=== PATIENT | male | born 1980 | race African-American/Black ===

== ENCOUNTER 2020-08-18 11:35 | Emergency (ER) | payer SELFPAY ==
[2020-08-18] MEDS ORDERED: HYDROCODONE/APAP 10/325 TAB ONE (12:10)
--- NOTE | 2020-08-18 12:49 | RAD REPORT ---
EXAM DESCRIPTION: RAD - Femur Left - 08/18/2020 12:33 pm CLINICAL HISTORY: PAIN COMPARISON: None. FINDINGS: No fracture is identified. There are multiple crossing artifacts in the left femoral neck and intertrochanteric region from overlying soft tissues There is no dislocation or periosteal reacti on noted. No acute or suspicious bony finding. No air or foreign body in the soft tissues. IMPRESSION: Negative left femur examination.
--- NOTE | 2020-08-18 13:30 | EDPHYS ---
Physician Documentation [facility] Name: Ashvin Okeefe Age: 40 yrs Sex: Male : 1980 Arrival Date: 08/18/2020 Time: 11:37 Bed 16 Private MD: ED Physician Scott Porter HPI: 08/18 11:52 This 40 yrs old Black Male presents to ER via Wheelchair with complaints of Fall Injury jmm - hip/thigh pain. 11:52 Details of fall: The patient fell from an upright position. Onset: The symptoms/episode jmm began/occurred acutely. Associated injuries: The patient sustained no obvious injury. The patient has not experienced similar symptoms in the past. This is a 40 year old male with a history of htn that presents to the ED with complaints of left thigh pain after slipping in his garage last night. Denies hitting his head. Historical: - Allergies: 11:49 No Known Allergies; iw - Home Meds: 11:49 triamterene oral oral once daily [Active]; iw - PMHx: 11:49 Hypertension; iw - PSHx: 11:49 None; iw - Immunization history:: Adult Immunizations up to date. - Social history:: Smoking status: Patient denies any tobacco usage or history of. ROS: 11:52 Constitutional: Negative for fever, chills, and weight loss, Cardiovascular: Negative jmm for chest pain, palpitations, and edema, Respiratory: Negative for shortness of breath, cough, wheezing, and pleuritic chest pain, Abdomen/GI: Negative for abdominal pain, nausea, vomiting, diarrhea, and constipation. 11:52 MS/extremity: Positive for pain. 11:52 All other systems are negative. Exam: 11:52 Constitutional: This is a well developed, well nourished patient who is awake, alert, jmm and in no acute distress. Head/Face: atraumatic. Eyes: EOMI, no conjunctival erythema appreciated ENT: Moist Mucus Membranes Neck: Trachea midline, Supple Chest/axilla: Normal chest wall appearance and motion. Cardiovascular: Regular rate and rhythm. No edema appreciated Respiratory: Normal respirations, no respiratory distress appreciated Abdomen/GI: Non distended, soft Back: Normal ROM Skin: General appearance color normal 11:52 Musculoskeletal/extremity: left lateral thigh tenderness, no deformity appreciated. 11:52 Skin: Appearance: Color: normal in color. 11:52 Neuro: Orientation: is normal, Mentation: is normal, Memory: is normal. 11:52 Psych: Behavior/mood is pleasant, cooperative. Vital Signs: 11:50 BP 172 / 83; Pulse 105; Resp 18 S; Temp 97.6; Pulse Ox 97% on R/A; Weight 172.37 kg; iw Height 6 ft. 1 in. (185.42 cm); Pain 6/10; 12:50 BP 145 / 100; Pulse 93; Resp 16; Pulse Ox 95% ; zb 13:50 BP 126 / 72; Pulse 95; Resp 16; Pulse Ox 98% on R/A; zb 11:50 Body Mass Index 50.14 (172.37 kg, 185.42 cm) iw MDM: 11:46 Patient medically screened. [facility] 13:28 Data reviewed: vital signs, nurses notes. Counseling: I had a detailed discussion with domenic the patient and/or guardian regarding: the historical points, exam findings, and any diagnostic results supporting the discharge/admit diagnosis, radiology results, the need for outpatient follow up, to return to the emergency department if symptoms worsen or persist or if there are any questions or concerns that arise at home. ED course: Imaging studies are negative. Patient most likely has a deep muscle contusion. I do not suspect DVT. Patient is advised to take anti inflammatories and otherwise given strict return precautions. Patient understood and agrees with the plan of care. . 02 11:52 Order name: Femur Left XRAY; Complete Time: 12:54 [facility] Administered Medications: 11:56 Drug: Huson 10 mg-325 mg 1 tabs Route: PO; iw 13:51 Follow up: Response: No adverse reaction; Pain is decreased; RASS: Alert and Calm (0) zb 14:15 Drug: Ketorolac 30 mg Route: IM; Site: right deltoid; zb Disposition: 17:06 Co-signature as Attending Physician, Scott Porter MD. rn Disposition: 08/18/20 13:30 Discharged to Home. Impression: Contusion of left thigh. - Condition is Stable. - Discharge Instructions: Contusion. - Prescriptions for Ibuprofen 800 mg Oral Tablet - take 1 tablet by ORAL route every 8 hours As needed take with food; 30 tablet. orphenadrine citrate 100 mg Oral Tablet Sustained Release - take 1 tablet by ORAL route 2 times per day As needed; 20 tablet. - Medication Reconciliation Form, Thank You Letter, Antibiotic Education, Prescription Opioid Use, Work release form form. - Follow up: Private Physician; When: 2 - 3 days; Reason: Recheck today's complaints, Continuance of care, Re-evaluation by your physician. Signatures: Dispatcher [employer] EDMS Kenneth Pathak PA PA jmm Williams, Irene, RN RN iw Nieto, Roman, MD MD rn Brown, Zipporah, RN RN zneva Corrections: (The following items were deleted from the chart) 15:32 13:30 08/18/2020 13:30 Discharged to Home. Impression: Contusion of left thigh. zb Condition is Stable. Forms are Medication Reconciliation Form, Thank You Letter, Antibiotic Education, Prescription Opioid Use. Follow up: Private Physician; When: 2 - 3 days; Reason: Recheck today's complaints, Continuance of care, Re-evaluation by your physician. domenic
--- NOTE | 2020-08-18 13:30 | ER ---
Nurse's Notes [facility] Name: Ashvin Okeefe Age: 40 yrs Sex: Male : 1980 Arrival Date: 08/18/2020 Time: 11:37 Bed 16 Private MD: Diagnosis: Contusion of left thigh Presentation: 08/18 11:47 Chief complaint: Patient states: slipped and fell in garage last night, extended his iw left leg forward and now has pain in left buttock and down to thigh. 11:47 Acuity: YASHIRA 4 iw 11:47 Method Of Arrival: Wheelchair iw 11:48 Coronavirus screen: At this time, the client does not indicate any symptoms associated iw with coronavirus-19. Ebola Screen: Patient negative for fever greater than or equal to 101.5 degrees Fahrenheit, and additional compatible Ebola Virus Disease symptoms Patient denies exposure to infectious person. Patient denies travel to an Ebola-affected area in the 21 days before illness onset. No symptoms or risks identified at this time. Initial Sepsis Screen: Does the patient meet any 2 criteria? No. Patient's initial sepsis screen is negative. Does the patient have a suspected source of infection? No. Patient's initial sepsis screen is negative. Risk Assessment: Do you want to hurt yourself or someone else? Patient reports no desire to harm self or others. Onset of symptoms was August 17, 2020. Historical: - Allergies: 11:49 No Known Allergies; iw - Home Meds: 11:49 triamterene oral oral once daily [Active]; iw - PMHx: 11:49 Hypertension; iw - PSHx: 11:49 None; iw - Immunization history:: Adult Immunizations up to date. - Social history:: Smoking status: Patient denies any tobacco usage or history of. Screenin:05 Abuse screen: Denies threats or abuse. Denies injuries from another. Nutritional zb screening: No deficits noted. Tuberculosis screening: No symptoms or risk factors identified. Fall Risk Fall in past 12 months (25 points). No secondary diagnosis (0 pts). No IV (0 pts). Ambulatory Aid- None/Bed Rest/Nurse Assist (0 pts). Gait- Impaired (20 pts.). Mental Status- Oriented to own ability (0 pts). Total Mckeon Fall Scale indicates Low Risk Score (25-44 pts). Fall prevention measures have been instituted. Side Rails Up X 2 Placed close to Nursing Station Frequent Obs/Assesments occuring As available Patient and Family Educated on Fall Prevention Program and strategies. Assessment: 12:03 General: Appears in no apparent distress. uncomfortable, Behavior is calm, cooperative, zb appropriate for age. Pain: Complains of pain in left hamstring and posterior aspect of left knee Pain does not radiate. Pain currently is 7 out of 10 on a pain scale. Quality of pain is described as aching, sharp, Pain began 1 day ago. Is continuous, Aggravated by increased activity, repositioning, weight bearing, Noted to be grimacing. Neuro: Level of Consciousness is awake, alert, obeys commands, Oriented to person, place, time, situation. Cardiovascular: Capillary refill < 3 seconds in bilateral fingers Patient's skin is warm and dry. Respiratory: Airway is patent Respiratory effort is even, unlabored, Respiratory pattern is regular, symmetrical. GI: Abdomen is round non-distended, obese. : No deficits noted. EENT: No deficits noted. Derm: Skin is intact, is healthy with good turgor, Skin is dry, Skin is normal, Skin temperature is warm. Musculoskeletal: Capillary refill < 3 seconds, in bilateral Range of motion: limited in left hip. 13:00 Reassessment: Patient appears in no apparent distress at this time. Patient and/or zb family updated on plan of care and expected duration. Pain level reassessed. Patient is alert, oriented x 3, equal unlabored respirations, skin warm/dry/pink. patient rates pain 6/10. currently sitting in wheelchair due to discomfort with motion. 14:03 Reassessment: ECP at bedside, discussing POC w/ patient. zb 14:15 Reassessment: Pt given walker. zb 14:22 Reassessment: Patient given IM medication d/c pending 15 min completion. zb 15:30 Reassessment: pt discharged given walker instructed on instruction. ambulated. zb understood d/c instructions. Vital Signs: 11:50 BP 172 / 83; Pulse 105; Resp 18 S; Temp 97.6; Pulse Ox 97% on R/A; Weight 172.37 kg; iw Height 6 ft. 1 in. (185.42 cm); Pain 6/10; 12:50 BP 145 / 100; Pulse 93; Resp 16; Pulse Ox 95% ; zb 13:50 BP 126 / 72; Pulse 95; Resp 16; Pulse Ox 98% on R/A; zb 11:50 Body Mass Index 50.14 (172.37 kg, 185.42 cm) ED Course: 11:37 Patient arrived in ED. as 11:38 Kenneth Pathak PA is PHCP. m 11:38 Scott Porter MD is Attending Physician. jmm 11:48 Triage completed. iw 11:49 Arm band placed on. iw 11:59 Day Garsia, OLGA is Primary Nurse. zb 12:06 Patient has correct armband on for positive identification. Pulse ox on. NIBP on. Door zb closed. Noise minimized. 12:34 Femur Left XRAY In Process Unspecified. EDMS 15:31 No provider procedures requiring assistance completed. Patient did not have IV access zb during this emergency room visit. Administered Medications: 11:56 Drug: Coleraine 10 mg-325 mg 1 tabs Route: PO; iw 13:51 Follow up: Response: No adverse reaction; Pain is decreased; RASS: Alert and Calm (0) zb 14:15 Drug: Ketorolac 30 mg Route: IM; Site: right deltoid; zb Outcome: 13:30 Discharge ordered by . m 15:31 Discharged to home ambulatory, with walker zb 15:31 Condition: stable 15:31 Discharge instructions given to patient, Instructed on discharge instructions, follow up and referral plans. medication usage, Demonstrated understanding of instructions, follow-up care, medications, Prescriptions given X 2. 15:32 Patient left the ED. zb Signatures: Dispatcher [employer] EDMS Kenneth Pathak PA PA jmm Martinez, Amelia as Williams, Irene, RN RN iw Day Garsia RN RN zb Corrections: (The following items were deleted from the chart) 11:50 11:50 BP 172 / 83; Pulse 105bpm; Resp 18bpm; Spontaneous; Pulse Ox 97% RA; 172.37 kg; iw Height 6 ft. 1 in.; BMI: 50.1; Pain 6/10; iw 13:52 13:51 Response: No adverse reaction; Pain is decreased zb zb
[2020-08-18] MEDS ORDERED: KETOROLAC 30 MG/ML INJ ONE (14:28)
[2020-08-18 15:36] VITALS: TEMP 97.6
[2020-08-18 15:38] VITALS: BP 126/72; O2SAT 98
== END 2020-08-18 15:32 | disposition home or self-care (01) ==
LOC: ER 11:35
DX: S70.12XA Contusion of left thigh, initial encounter (principal); W01.0XXA Fall on same level from slipping, tripping and stumbling without subsequent striking against object, initial encounter; Y93.89 Activity, other specified; Y92.008 Other place in unspecified non-institutional (private) residence as the place of occurrence of the external cause; I10 Essential (primary) hypertension
CPT/HCPCS: 96372; 99284

== ENCOUNTER 2021-11-21 10:03 | Emergency (ER) | payer OTHER ==
--- NOTE | 2021-11-21 11:48 | RAD REPORT ---
EXAM DESCRIPTION: RAD - Knee Right 3 View - 11/21/2021 11:35 am CLINICAL HISTORY: knee pain, injury COMPARISON: No comparisonsNo comparisons FINDINGS/IMPRESSION: No acute fracture. No malalignment. Mild lateral compartment narrowing.
--- NOTE | 2021-11-21 12:50 | ER ---
Nurse's Notes [facility] Name: Ashvin Okeefe Age: 41 yrs Sex: Male : 1980 Arrival Date: 11/21/2021 Time: 10:06 Bed 6 Private MD: Diagnosis: Other internal derangements of right knee Presentation: 11/21 10:36 Acuity: YASHIRA 4 iw 10:47 Chief complaint: Patient states: slipped last night and now has right knee pain. iw Coronavirus screen: At this time, the client does not indicate any symptoms associated with coronavirus-19. Ebola Screen: Patient negative for fever greater than or equal to 101.5 degrees Fahrenheit, and additional compatible Ebola Virus Disease symptoms Patient denies exposure to infectious person. Patient denies travel to an Ebola-affected area in the 21 days before illness onset. No symptoms or risks identified at this time. Initial Sepsis Screen: Does the patient meet any 2 criteria? No. Patient's initial sepsis screen is negative. Does the patient have a suspected source of infection? No. Patient's initial sepsis screen is negative. Risk Assessment: Do you want to hurt yourself or someone else? Patient reports no desire to harm self or others. Onset of symptoms was November 21, 2021. 10:47 Method Of Arrival: Ambulatory Vital Signs: 12:02 BP 130 / 77; Pulse 93; Resp 16; Temp 98.0; Pulse Ox 96% on R/A; iw ED Course: 10:06 Patient arrived in ED. mr 10:12 Kenneth Pathak PA is PHCP. [facility] 10:12 Jesus Bridges DO is Attending Physician. m 10:36 Triage completed. iw 11:37 Knee Right 3 View XRAY In Process Unspecified. EDMS 12:49 Sammy Palacio MD is Referral Physician. jmm 12:52 Bed in low position. Call light in reach. Side rails up X 1. Pulse ox on. NIBP on. 5 12:53 Peña wrap to right knee. 5 Administered Medications: 13:16 Drug: Ketorolac 30 mg Route: IM; Site: left deltoid; [facility] Outcome: 12:49 Discharge ordered by MD. [facility] 13:30 Patient left the ED. [facility] Signatures: Dispatcher [employer] Kenneth Agee PA PA jmm Rivera, Kate mr Zhane Okeefe, RN RN Quin [facility] Gwen Hare RN RN [id number]
--- NOTE | 2021-11-21 12:50 | EDPHYS ---
Physician Documentation [facility] Name: Ashvin Okeefe Age: 41 yrs Sex: Male : 1980 Arrival Date: 11/21/2021 Time: 10:06 Bed 6 Private MD: ED Physician Jesus Bridges HPI: 11/21 12:46 This 41 yrs old Black Male presents to ER via Ambulatory with complaints of Knee Pain. jmm 12:46 The patient presents with an injury, pain. Onset: The symptoms/episode began/occurred jmm acutely. Modifying factors: The symptoms are alleviated by nothing. the symptoms are aggravated by nothing. This is a 41-year-old male presents emerged department after a fall which occurred yesterday. Patient states he has pain mainly to the right medial knee. Denies other known injury.. ROS: 12:46 Constitutional: Negative for fever, chills, and weight loss, Cardiovascular: Negative jmm for chest pain, palpitations, and edema, Respiratory: Negative for shortness of breath, cough, wheezing, and pleuritic chest pain. 12:46 MS/extremity: Positive for injury or acute deformity. 12:46 All other systems are negative. Exam: 12:46 Constitutional: This is a well developed, well nourished patient who is awake, alert, jmm and in no acute distress. Head/Face: atraumatic. Eyes: EOMI, no conjunctival erythema appreciated ENT: Moist Mucus Membranes Neck: Trachea midline, Supple Chest/axilla: Normal chest wall appearance and motion. Cardiovascular: Regular rate and rhythm. No edema appreciated Respiratory: Normal respirations, no respiratory distress appreciated Abdomen/GI: Non distended, soft Back: Normal ROM Skin: General appearance color normal 12:46 Musculoskeletal/extremity: Full range of motion appreciated the right knee, compartments are soft, pain mainly localized to the right medial knee, full dorsalis pedis pulse, neurovascular intact.. 12:46 Skin: Appearance: Color: normal in color. 12:46 Neuro: Orientation: is normal, Mentation: is normal, Memory: is normal. 12:46 Psych: Behavior/mood is pleasant, cooperative. Vital Signs: 12:02 BP 130 / 77; Pulse 93; Resp 16; Temp 98.0; Pulse Ox 96% on R/A; iw MDM: 10:35 Patient medically screened. jmm 12:48 Data reviewed: vital signs, nurses notes. Counseling: I had a detailed discussion with [facility] the patient and/or guardian regarding: the historical points, exam findings, and any diagnostic results supporting the discharge/admit diagnosis, radiology results, the need for outpatient follow up, to return to the emergency department if symptoms worsen or persist or if there are any questions or concerns that arise at home. 11/21 10:34 Order name: Knee Right 3 View XRAY; Complete Time: 11:59 [facility] 11/21 12:52 Order name: Peña wrap-joint; Complete Time: 12:57 [facility] Administered Medications: 13:16 Drug: Ketorolac 30 mg Route: IM; Site: left deltoid; [facility] Disposition: 22:09 Co-signature as Attending Physician, Jesus Bridges DO I was immediately available on-site ms3 in the Emergency Department for consultation in the care of the patient.. Disposition Summary: 11/21/21 12:49 Discharge Ordered Location: Home [facility] Condition: Stable [facility] Diagnosis - Other internal derangements of right knee [facility] Followup: [facility] - With: Sammy Palacio MD - When: 2 - 3 days - Reason: Recheck today's complaints, Continuance of care, Re-evaluation by your physician Discharge Instructions: - Discharge Summary Sheet [facility] - Acute Knee Pain, Adult [facility] Forms: - Medication Reconciliation Form [facility] - Thank You Letter [facility] - Antibiotic Education [facility] - Prescription Opioid Use [facility] - Work release form 6 Prescriptions: - Diclofenac Sodium 75 mg Oral Tablet Sustained Release - take 1 tablet by ORAL route 2 times per day; 30 tablet; Refills: 0, Product [facility] Selection Permitted - orphenadrine citrate 100 mg Oral Tablet Sustained Release - take 1 tablet by ORAL route 2 times per day As needed; 20 tablet; Refills: 0, [facility] Product Selection Permitted Signatures: Dispatcher [employer] Kenneth Agee PA PA jmm Sims, Marcus, DO DO ms3 Gwen Hare RN RN [id number]
[2021-11-21] MEDS ORDERED: KETOROLAC 30 MG/ML INJ ONE (13:16)
[2021-11-21 13:49] VITALS: BP 130/77; TEMP 98; O2SAT 96
== END 2021-11-21 13:30 | disposition home or self-care (01) ==
LOC: ER 10:03
DX: M23.8X1 Other internal derangements of right knee (principal)
CPT/HCPCS: 96372; 99284

== ENCOUNTER 2022-06-07 11:30 | Emergency (ER) | payer OTHER ==
[2022-06-07 12:24] LABS: Absolute Lymphocytes (CBC) 2.5 K/uL (0.7-4.9); Hematocrit 39.6 % (39.6-49.0); Lymphocytes % 31.7 % (15.3-44.8); MCV 86.1 fL (80-100)
[2022-06-07 12:44] LABS: Potassium 3.6 mmol/L (3.5-5.1); Troponin High Sensitivity 8.5 pg/mL (<58.9)
--- NOTE | 2022-06-07 13:34 | RAD REPORT ---
EXAM DESCRIPTION: RAD - Chest Single View - 06/07/2022 1:14 pm CLINICAL HISTORY: papitations COMPARISON: No comparisons FINDINGS: Lines: None. Lungs: No evidence of edema or pneumonia. Pleural: No significant pleural effusions or pneumothorax. Cardiac: The heart size is within normal limits. Mediastinum: Within normal limits. Bones: No acute fractures. Other: None IMPRESSION: No acute cardiopulmonary disease.
--- NOTE | 2022-06-07 15:53 | RAD REPORT ---
EXAM DESCRIPTION: US - Extrem Venous W Compress Theodore - 06/07/2022 3:46 pm CLINICAL HISTORY: palpitations, elevated d dimer COMPARISON: No comparisonsNo comparisons TECHNIQUE: Real-time sonographic evaluation of the lower extremity deep venous systems was performed using color Doppler, grayscale, and compression. FINDINGS: Bilateral lower extremities. Normal compressibility, flow augmentation, phasic flow and spontaneous flow is identified in both the left and right lower extremity deep venous systems. No intraluminal filling defects seen. IMPRESSION: No DVT in either lower extremity.
--- NOTE | 2022-06-07 16:51 | ER ---
Nurse's Notes [facility] Name: Ashvin Okeefe Age: 42 yrs Sex: Male : 1980 Arrival Date: 06/07/2022 Time: 11:31 Bed 25 Private MD: Diagnosis: Palpitations;Morbid (severe) obesity due to excess calories;Elevated D Dimer Presentation: 06/07 11:54 Chief complaint: Patient states: "I feel my heart racing since Thursday." Denies pain, kb3 N/V. Coronavirus screen: Vaccine status: Patient reports receiving the 2nd dose of the covid vaccine. Client denies travel out of the [place] in the last 14 days. Ebola Screen: Patient negative for fever greater than or equal to 101.5 degrees Fahrenheit, and additional compatible Ebola Virus Disease symptoms Patient denies exposure to infectious person. Patient denies travel to an Ebola-affected area in the 21 days before illness onset. Initial Sepsis Screen: Does the patient meet any 2 criteria? No. Patient's initial sepsis screen is negative. Does the patient have a suspected source of infection? No. Patient's initial sepsis screen is negative. Risk Assessment: Do you want to hurt yourself or someone else? Patient reports no desire to harm self or others. Onset of symptoms was June 02, 2022. 11:54 Method Of Arrival: Ambulatory kb3 11:54 Acuity: YASHIRA 3 kb3 Triage Assessment: 11:57 General: Appears in no apparent distress. Behavior is calm, cooperative. Pain: Denies kb3 pain. Cardiovascular: Reports palpitations. Historical: - Allergies: 11:57 No Known Allergies; kb3 - PMHx: 11:57 Hypertension; NIDDM; kb3 - PSHx: 11:57 None; kb3 - Immunization history:: Adult Immunizations up to date, Client reports receiving the 2nd dose of the Covid vaccine, Last tetanus immunization: up to date. - Social history:: Smoking status: Patient denies any tobacco usage or history of. Screenin:56 Abuse screen: Denies threats or abuse. Denies injuries from another. Nutritional tp1 screening: No deficits noted. Tuberculosis screening: No symptoms or risk factors identified. Fall Risk None identified. Assessment: 12:05 General: Appears in no apparent distress. comfortable, Behavior is calm, cooperative. tp1 Pain: Denies pain. Neuro: Level of Consciousness is awake, alert, obeys commands, Oriented to person, place, time, situation, Denies blurred vision dizziness, headache. Cardiovascular: Reports increased heart rate Denies chest pain, palpitations, shortness of breath, Patient's skin is warm and dry. Respiratory: Airway is patent Respiratory effort is even, unlabored. GI: Abdomen is obese, Patient currently denies diarrhea, nausea, vomiting. : No signs and/or symptoms were reported regarding the genitourinary system. EENT: No signs and/or symptoms were reported regarding the EENT system. Derm: Skin is pink, warm \\T\\ dry. Musculoskeletal: Circulation, motion, and sensation intact. 12:56 Reassessment: Patient appears in no apparent distress at this time. No changes from tp1 previously documented assessment. Patient and/or family updated on plan of care and expected duration. Pain level reassessed. Patient is alert, oriented x 3, equal unlabored respirations, skin warm/dry/pink. Patient denies pain at this time. 13:57 Reassessment: Patient appears in no apparent distress at this time. No changes from tp1 previously documented assessment. Patient is alert, oriented x 3, equal unlabored respirations, skin warm/dry/pink. watching TV with at bedside Patient denies pain at this time. 14:53 Reassessment: Patient appears in no apparent distress at this time. No changes from tp1 previously documented assessment. Patient denies pain at this time. 16:09 Reassessment: Patient appears in no apparent distress at this time. No changes from tp1 previously documented assessment. Patient is alert, oriented x 3, equal unlabored respirations, skin warm/dry/pink. watching TV comfortably Patient denies pain at this time. Vital Signs: 11:54 BP 147 / 91; Pulse 103; Resp 20; Temp 98.4; Pulse Ox 98% ; Weight 192.32 kg; Height 6 kb3 ft. 1 in. (185.42 cm); Pain 0/10; 12:57 BP 156 / 96; Pulse 100; Resp 19; Pulse Ox 99% on R/A; tp1 14:01 Weight 189.6 kg (M); tp1 14:01 BP 148 / 84; Pulse 90; Resp 17; Pulse Ox 100% on R/A; tp1 14:53 BP 134 / 80; Pulse 90; Resp 22; Pulse Ox 100% on R/A; tp1 16:09 BP 125 / 77; Pulse 81; Resp 17; Pulse Ox 100% on R/A; tp1 14:01 Body Mass Index 55.15 (189.60 kg, 185.42 cm) tp1 ED Course: 11:31 Patient arrived in ED. as 11:47 Jesus Bridges DO is Attending Physician. ms3 11:57 Triage completed. kb3 11:57 Arm band placed on left wrist. kb3 12:00 Betzy Lui, RN is Primary Nurse. tp1 12:05 Patient has correct armband on for positive identification. Bed in low position. Call tp1 light in reach. Adult w/ patient. 12:05 Client placed on continuous cardiac and pulse oximetry monitoring. NIBP monitoring tp1 applied. 12:05 EKG done, by collision technician. reviewed by Jesus Bridges DO. 12:14 No provider procedures requiring assistance completed. Inserted saline lock: 20 gauge tp1 in left antecubital area, using aseptic technique. Blood collected. Patient maintains SpO2 saturation greater than 95% on room air. 13:16 XRAY Chest (1 view) In Process Unspecified. EDMS 15:48 Extrem Venous W Compression Theodore US In Process Unspecified. EDMS 16:49 Ariel Spaulding DO is Referral Physician. ms3 17:02 IV discontinued, intact, bleeding controlled, No redness/swelling at site. Pressure tp1 dressing applied. Administered Medications: No medications were administered Medication: 12:57 VIS not applicable for this client. tp1 Outcome: 16:50 Discharge ordered by . ms3 17:02 Discharged to home ambulatory. tp1 17:02 Condition: good 17:02 Discharge instructions given to patient, Instructed on discharge instructions, follow up and referral plans. Demonstrated understanding of instructions, follow-up care. 17:03 Patient left the ED. tp1 Signatures: Dispatcher [employer] EDMS Melissa Morris Marcus, DO DO ms3 Betzy Lui, RN RN tp1 Arianna Morris Kelly RN RN kb3
--- NOTE | 2022-06-07 16:51 | EDPHYS ---
Physician Documentation [facility] Name: Ashvin Okeefe Age: 42 yrs Sex: Male : 1980 Arrival Date: 06/07/2022 Time: 11:31 Bed 25 Private MD: ED Physician Jesus Bridges HPI: 06/07 12:20 This 42 yrs old Black Male presents to ER via Ambulatory with complaints of Irregular ms3 Pulse - 110s. 12:20 The patient presents with a history of heart racing. Context: The symptoms occur at ms3 rest. Onset: The symptoms/episode began/occurred 5 day(s) ago. Duration: The patient or guardian reports a single episode, that is still ongoing, and unchanged. Modifying factors: The symptoms are aggravated by nothing. The symptoms are alleviated by nothing. Associated signs and symptoms: Pertinent negatives: anxiety, chest pain, cough, lightheadedness, nausea, SOB, vomiting. Severity of symptoms: At their worst the symptoms were mild in the emergency department the symptoms are unchanged Pain is currently a 0 / 10. Historical: - Allergies: 11:57 No Known Allergies; kb3 - PMHx: 11:57 Hypertension; NIDDM; kb3 - PSHx: 11:57 None; kb3 - Immunization history:: Adult Immunizations up to date, Client reports receiving the 2nd dose of the Covid vaccine, Last tetanus immunization: up to date. - Social history:: Smoking status: Patient denies any tobacco usage or history of. ROS: 12:20 Constitutional: Negative for fever, and chills. ENT: Negative for injury, pain, and ms3 discharge, Neck: Negative for injury, pain, and swelling, Respiratory: Negative for shortness of breath, cough, wheezing, and pleuritic chest pain, Abdomen/GI: Negative for abdominal pain, nausea, vomiting, diarrhea, and constipation, MS/Extremity: Negative for injury and deformity, Skin: Negative for injury, rash, and discoloration. 12:20 Cardiovascular: Positive for palpitations. 12:20 All other systems are negative. Exam: 12:02 ECG was reviewed by the Attending Physician. ms3 12:20 Constitutional: This is a well developed, well nourished patient who is awake, alert, ms3 and in no acute distress. Head/Face: Normocephalic, atraumatic. Neck: Trachea midline, no cervical lymphadenopathy. Supple, full range of motion without nuchal rigidity, or vertebral point tenderness. No Meningismus. Chest/axilla: Normal chest wall appearance and motion. Nontender with no deformity. Respiratory: Lungs have equal breath sounds bilaterally, clear to auscultation and percussion. No rales, rhonchi or wheezes noted. No increased work of breathing, no retractions or nasal flaring. Abdomen/GI: Soft, non-tender, with normal bowel sounds. No distension or tympany. No guarding or rebound. No evidence of tenderness throughout. Skin: Warm, dry with normal turgor. Normal color with no rashes, no lesions, and no evidence of cellulitis. MS/ Extremity: Pulses equal, no cyanosis. Neurovascular intact. Full, normal range of motion. 12:20 Cardiovascular: Rate: tachycardic, Rhythm: regular, Pulses: no pulse deficits are appreciated, Heart sounds: normal, normal S1and S2, no S3 or S4, no murmur, no rub, no gallop. Vital Signs: 11:54 BP 147 / 91; Pulse 103; Resp 20; Temp 98.4; Pulse Ox 98% ; Weight 192.32 kg; Height 6 kb3 ft. 1 in. (185.42 cm); Pain 0/10; 12:57 BP 156 / 96; Pulse 100; Resp 19; Pulse Ox 99% on R/A; tp1 14:01 Weight 189.6 kg (M); tp1 14:01 BP 148 / 84; Pulse 90; Resp 17; Pulse Ox 100% on R/A; tp1 14:53 BP 134 / 80; Pulse 90; Resp 22; Pulse Ox 100% on R/A; tp1 16:09 BP 125 / 77; Pulse 81; Resp 17; Pulse Ox 100% on R/A; tp1 14:01 Body Mass Index 55.15 (189.60 kg, 185.42 cm) tp1 MDM: 12:00 Patient medically screened. ms3 14:53 ED course: Patient is above weight limits for CT and VQ scans at [facility]. ms3 Discussed transfer to the [facility] for CT chest angio for PE or VQ scan. Patient and his do not wish to be transferred at this time. Discussed risks of not obtaining CT or VQ scan to include worsening symptoms, disability, . The risks of blindly admistering systemic anticoagulation without confirmed VTE is high.. 16:52 Differential diagnosis: arrythmia, dehydration, stress disorder, PE. Data reviewed: ms3 vital signs, nurses notes, lab test result(s), EKG, radiologic studies, and as a result, I will discharge patient. Data interpreted: patent chemist: rate is 90 beats/min, rhythm is normal sinus rhythm, regular, with no ectopy, Interpretation: normal rate, normal rhythm. 16:55 ED course: Discussed transfer options for CT chest angio for pulmonary embolism and V/Q ms3 again with patient and his . They declined. Patient to follow-up with Dr. Spaulding in 1 to 2 days. Patient and his understand and agree with plan. All questions were answered. Return precautions discussed include chest pain, shortness of breath, lightheadedness, syncope, worsening symptoms, or any other concerns. On reevaluation patient's heart rate is in the 80s with room air oxygen saturation of 100%. Patient is alert and oriented x4, in no apparent distress, nontoxic-appearing, speaking full sentences. 06/07 12:20 Order name: D-Dimer; Complete Time: 12:51 ms3 06/07 12:22 Order name: Basic Metabolic Panel; Complete Time: 12:51 EDMS 06/07 12:00 Order name: XRAY Chest (1 view); Complete Time: 14:30 ms3 06/07 12:00 Order name: EKG; Complete Time: 12:29 ms3 06/07 12:22 Order name: Troponin High Sensitivity; Complete Time: 12:51 EDMS 06/07 12:22 Order name: NT PRO-BNP; Complete Time: 12:51 EDMS 06/07 12:22 Order name: CBC with Automated Diff; Complete Time: 12:51 EDMS 06/07 14:49 Order name: Extrem Venous W Compression Theodore US; Complete Time: 16:40 ms3 06/07 12:00 Order name: Cardiac monitoring; Complete Time: 12:01 ms3 06/07 12:00 Order name: EKG - Nurse/Tech; Complete Time: 12:01 ms3 06/07 12:00 Order name: IV Saline Lock; Complete Time: 12:14 ms3 06/07 12:00 Order name: Labs collected and sent; Complete Time: 12:14 ms3 06/07 12:00 Order name: O2 Per Protocol; Complete Time: 12: ms3 06/07 12:00 Order name: O2 Sat Monitoring; Complete Time: 12: ms3 EC:02 Rate is 91 beats/min. Rhythm is regular. QRS [place] is Normal. [place] interval is normal. QRS ms3 interval is normal. QT interval is normal. Clinical impression: NSR w/ Non-specific ST/T Changes. Interpreted by me. Reviewed by me. Administered Medications: No medications were administered Disposition Summary: 06/07/22 16:50 Discharge Ordered Location: Home ms3 Condition: Stable ms3 Diagnosis - Palpitations ms3 - Morbid (severe) obesity due to excess calories ms3 - Elevated D Dimer ms3 Followup: ms3 - With: Ariel Spaulding DO - When: 1 - 2 days - Reason: Recheck today's complaints Discharge Instructions: - Discharge Summary Sheet ms3 - Atrial Fibrillation ms3 - Obesity, Adult ms3 - Palpitations ms3 Forms: - Medication Reconciliation Form ms3 - Thank You Letter ms3 - Antibiotic Education ms3 - Prescription Opioid Use ms3 Signatures: Dispatcher [employer] EDMS Jesus Bridges DO DO ms3 Olivia Espnioza, RN RN kb3 Corrections: (The following items were deleted from the chart) 14:36 12:52 Chest For PE Angio+CT.RAD.BRZ ordered. EDIL EDMS 14:53 12:29 BASIC METABOLIC PANEL+C.LAB.BRZ ordered. EDIL EDMS 14:53 12:29 CBC+H.LAB.BRZ ordered. EDMS EDMS 14:53 12:29 PROBNP+C.LAB.BRZ ordered. EDMS EDMS 14:53 12:29 Troponin High Sensitivity+C.LAB.BRZ ordered. EDMS EDMS 16:55 14:53 ED course: Patient is above weight limits for CT and VQ scans at [address] Discussed transfer to the [facility] for CT chest angio for PE or VQ scan. Patient and his do not wish to be transferred at this time. Discussed risks of not obtaining CT or VQ scan to include worsening symptoms, disability, .. ms3
[2022-06-07 17:15] VITALS: TEMP 98.4
[2022-06-07 17:26] VITALS: O2SAT 100
[2022-06-07 17:28] VITALS: BP 125/77
--- NOTE | 2022-06-09 12:54 | EKG ---
Test Date: 2022-06-07 Test Time: 12:02:20 Technical Administrative Assistant: MISSY MEASUREMENT RESULTS: Intervals: Rate: 91 HI: 166 QRSD: 92 QT: 342 QTc: 420 Logan: P: 64 HI: 166 QRS: 89 T: 53 INTERPRETIVE STATEMENTS: Normal sinus rhythm Low voltage QRS Cannot rule out Anterior infarct, age undetermined Abnormal ECG No previous ECG available for comparison Electronically Signed On 06-09-22 12:50:18 SPECIAL SYSTEMS TECHNICIAN by Honorio Leyva
== END 2022-06-07 17:03 | disposition home or self-care (01) ==
LOC: ER 11:30
DX: R00.2 Palpitations (principal); R79.89 Other specified abnormal findings of blood chemistry; E66.01 Morbid (severe) obesity due to excess calories; Z68.43 Body mass index [BMI] 50.0-59.9, adult; I10 Essential (primary) hypertension
CPT/HCPCS: 36415; 71045; 80048; 83880; 84484; 85025; 85379; 93005; 93970; 99284